=== PATIENT | male | born 1975 | race Hispanic/Latino ===

== ENCOUNTER 2024-09-17 17:24 | Emergency (ER) | payer BC, OTHER ==
--- OUTSIDE RECORDS SUMMARY | 2024-09-17 17:28 | XMS REPORT | Continuity of Care Document ---
Author Name Unknown Address [address] [facility] [address] [place] [address] [facility] thconnect Address [address] [facility] [place] [address] Care Team Providers Care Power Chisel Operator Name Role Phone Irvin Baig Primary Care Physician [phone] Irvin Baig Attending Clinician Unavailable EDIL BOOKER Attending Clinician Unavailable Ishmael Mccarthy Attending Clinician Unavailable Miguel Bustillo DO Attending Clinician [phone] Andrei Daniel MD Attending Clinician [phone] ANDREI DANIEL Attending Clinician Unavailable KNOW, DOES_NOT Admitting Clinician Unavailable Payers Payer Name Policy Type Policy Number Effective Date Expirati on Date Source [id number] PPO [id number] 2020 00:00:00 2024 00:00:00 [employer] 53 [id number] 2024 00:00:00 [facility] 6 [id number] 2017 00:00:00 [facility] Problems Condition Name Condition Details Condition Category Status Onset Date Resolution Date Last Treatment Date Treating Clinician Comments Source Tear of lateral meniscus of knee Tear of Lateral Meniscus of Knee Problem Active 01-05 00:00: 00 [facility] Chondromal acia of right patella Chondromal acia of Right Patella Problem Active 01-05 00:00: 00 [facility] Pain of left knee joint Pain of Left Knee Joint Problem Active 12-24 00:00: 00 [facility] No known active problems No known active problems Disease [facility] [id number] Morbid obesity Problem [facility] [id number] Other chronic pain Problem [facility] [id number] Adult BMI 40.0-44.9 kg/sq m Problem [facility] [id number] Prediabete s Problem [facility] [id number] Gout of right ankle, unspecifie d cause, unspecifie d chronicity Problem [facility] [id number] Marital conflict involving divorce Problem [facility] [id number] Adjustment disorder, unspecifie d type Problem [facility] [id number] Mixed hyperlipid emia Problem [facility] [id number] Acute gout involving toe, unspecifie d cause, unspecifie d laterality Problem [facility] [id number] Attention deficit hyperactiv ity disorder (ADHD), predominan tly inattentiv e type Problem [facility] [id number] Grieving Problem Commo n [facility] [id number] S/P laparoscop ic cholecyste ctomy Problem [facility] Allergies, Adverse Reactions, Alerts Allergy Name Allergy Type Status Severity Reaction(s) Onset Date Inactive Date Treating Clinician Comments Source No Known Drug Allergie s DA Active U 6-19 00:00: 00 [facility] NO KNOWN ALLERGIE S Drug Class Active [facility] Social History Social Habit Start Date Stop Date Quantity Comments Source Exposure to SARS-CoV-2 (event) Not sure [facility] of [facility] Sex Assigned At [facility] Smoking Status Start Date Stop Date Source Never Smoker [facility] Tobacco smoking consumption unknown [facility] Medications Ordered Medication Name Filled Medication Name Start Date Stop Date Current Medication? Ordering Clinician Indication Dosage Frequency Signature (SIG) Comments Components Source Amphetamine -Dextroamph etamine 20 MG Amphetamine -Dextroamph etamine 20 MG 2-12 00:00: 00 No 1{table t} BID Amphetamin e-Dextroam phetamine 20 MG HYDROcodone -acetaminop hen (NORCO) 10-325 mg tablet 1 tablet 12-16 02:45: 00 12-16 01:40 :00 No 1{tbl} 1 tablet, Oral, ONCE, 1 dose, On Fri12/16/23 at 2145, Routine [facility] ketorolac (TORADOL) injection 15 mg 12-16 02:30: 00 12-16 01:40 :00 No 15mg 15 mg, Slow IV Push, ONCE, 1 dose, On Fri12/16/23 at 2130, Routine [facility] HYDROcodone -acetaminop hen (NORCO) 10-325 mg tablet 1 tablet 12-15 23:30: 00 12-15 22:31 :00 No 1{tbl} 1 tablet, Oral, ONCE, 1 dose, On Fri12/16/23 at 1830, Routine [facility] colchicine (COLCRYS) tablet 1.2 mg 12-15 21:45: 00 12-15 21:39 :00 No 1.2mg 1.2 mg, Oral, ONCE, 1 dose, On Fri12/16/23 at 1645, Routine [facility] methylPREDN ISolone 4 mg tablets 5- 00:00: 00 Yes [id number] Take by mouth SEE-INSTRU CTIONS. follow package directions [facility] ibuprofen (IBU) tablet 600 mg 01-05 14:00: 00 01-05 14:03 :00 No 600mg 600 mg, Oral, ONCE, 1 dose, Fri01/05/21 at 0900, LISA [facility] KCL (KLOR-CON M20) tablet 40 mEq 01-05 13:00: 00 01-05 12:09 :00 No 40meq 40 mEq, Oral, ONCE, 1 dose, Fri01/05/21 at 0800, Routine [facility] Kenalog (Triamcinol one) Kenalog (Triamcinol one) 1-16 00:00: [address] [facility] No known medications No Un angelique [facility] naproxen sodium 550 mg tablet TAKE 1 TABLET BY MOUTH IN THE MORNING AND 1 IN THE EVENING WITH MEALS naproxen sodium 550 mg tablet TAKE 1 TABLET BY MOUTH IN THE MORNING AND 1 IN THE EVENING WITH MEALS No naproxen sodium 550 mg tablet TAKE 1 TABLET BY MOUTH IN THE MORNING AND 1 IN THE EVENING WITH MEALS [facility] Allopurinol 300 MG Allopurinol 300 MG No QD Allopurino l 300 MG predniSONE 10 MG predniSONE 10 MG No predniSONE 10 MG prednisone 10 mg tablet Take 1 tablet twice a day by oral route. prednisone 10 mg tablet Take 1 tablet twice a day by oral route. No 1 BID prednisone 10 mg tablet Take 1 tablet twice a day by oral route. [facility] Meloxicam 15 MG Meloxicam 15 MG No Meloxicam 15 MG aspirin 81 mg tablet,radha yed release TAKE 1 TABLET BY MOUTH TWICE DAILY FOR 21 DAYS aspirin 81 mg tablet,radha yed release TAKE 1 TABLET BY MOUTH TWICE DAILY FOR 21 DAYS No aspirin 81 mg tablet,del ayed release TAKE 1 TABLET BY MOUTH TWICE DAILY FOR 21 DAYS [facility] promethazin e 25 mg tablet TAKE 1 TABLET BY MOUTH EVERY 8 HOURS NEEDED FOR NAUSEA AND VOMITING promethazin e 25 mg tablet TAKE 1 TABLET BY MOUTH EVERY 8 HOURS NEEDED FOR NAUSEA AND VOMITING No promethazi ne 25 mg tablet TAKE 1 TABLET BY MOUTH EVERY 8 HOURS NEEDED FOR NAUSEA AND VOMITING [facility] tramadol 50 mg tablet TAKE 1 TABLET BY MOUTH EVERY 6 HOURS FOR 5 DAYS tramadol 50 mg tablet TAKE 1 TABLET BY MOUTH EVERY 6 HOURS FOR 5 DAYS No 1 Q6H tramadol 50 mg tablet TAKE 1 TABLET BY MOUTH EVERY 6 HOURS FOR 5 DAYS [facility] meloxicam 15 mg tablet TAKE 1 TABLET BY MOUTH ONCE DAILY WITH MEALS meloxicam 15 mg tablet TAKE 1 TABLET BY MOUTH ONCE DAILY WITH MEALS No meloxicam 15 mg tablet TAKE 1 TABLET BY MOUTH ONCE DAILY WITH MEALS [facility] Zanaflex 4 mg tablet Take 1 tablet every 6 hours by oral route. Zanaflex 4 mg tablet Take 1 tablet every 6 hours by oral route. No 1 Q6H Zanaflex 4 mg tablet Take 1 tablet every 6 hours by oral route. [facility] dextroamphe tamine-amph etamine 20 mg tablet TAKE 1 TABLET BY MOUTH TWICE DAILY FOR 30 DAYS dextroamphe tamine-amph etamine 20 mg tablet TAKE 1 TABLET BY MOUTH TWICE DAILY FOR 30 DAYS No dextroamph etamine-am phetamine 20 mg tablet TAKE 1 TABLET BY MOUTH TWICE DAILY FOR 30 DAYS [facility] dextroamphe tamine-amph etamine ER 15 mg 24hr capsule,ext end release TAKE 1 CAPSULE BY MOUTH ONCE DAILY IN THE MORNING FOR 30 DAYS dextroamphe tamine-amph etamine ER 15 mg 24hr capsule,ext end release TAKE 1 CAPSULE BY MOUTH ONCE DAILY IN THE MORNING FOR 30 DAYS No dextroamph etamine-am phetamine ER 15 mg 24hr capsule,ex tend release TAKE 1 CAPSULE BY MOUTH ONCE DAILY IN THE MORNING FOR 30 DAYS [facility] methocarbam ol 500 mg tablet TAKE 1 TABLET BY MOUTH IN THE MORNING AND 1 AT NOON AND 1 IN THE EVENING FOR 5 DAYS methocarbam ol 500 mg tablet TAKE 1 TABLET BY MOUTH IN THE MORNING AND 1 AT NOON AND 1 IN THE EVENING FOR 5 DAYS No methocarba mol 500 mg tablet TAKE 1 TABLET BY MOUTH IN THE MORNING AND 1 AT NOON AND 1 IN THE EVENING FOR 5 DAYS [facility] methylpredn isolone 4 mg tablets in a dose pack TAKE BY MOUTH DIRECTED ON INSIDE OF PACKAGE methylpredn isolone 4 mg tablets in a dose pack TAKE BY MOUTH DIRECTED ON INSIDE OF PACKAGE No methylpred nisolone 4 mg tablets in a dose pack TAKE BY MOUTH DIRECTED ON INSIDE OF PACKAGE [facility] Immunizations Ordered Immunization Name Filled Immunization Name Date Status Comments Source Kenalog (Triamcinolone) Kenalog (Triamcinolone) 2018-08-05 08:24:00 Completed [facility] Adacel (Tdap) Adacel (Tdap) 2018 10:33:00 Completed [facility] Adacel (Tdap) Adacel (Tdap) 2018 10:33:00 Completed [facility] Adacel (Tdap) Adacel (Tdap) 2018 10:33:00 Completed [facility] Adacel (Tdap) Adacel (Tdap) 2018 10:33:00 Completed [facility] Adacel (Tdap) Adacel (Tdap) 2018 10:33:00 Completed [facility] Adacel (Tdap) Adacel (Tdap) 2018 10:33:00 Completed [facility] Adacel (Tdap) Adacel (Tdap) 2018 10:33:00 Completed [facility] Adacel (Tdap) Adacel (Tdap) Unknown Completed [facility] Adacel (Tdap) Adacel (Tdap) Unknown Completed [facility] Adacel (Tdap) Adacel (Tdap) Unknown Completed [facility] Adacel (Tdap) Adacel (Tdap) Unknown Completed [facility] Adacel (Tdap) Adacel (Tdap) Unknown Completed [facility] Adacel (Tdap) Adacel (Tdap) Unknown Completed [facility] Adacel (Tdap) Adacel (Tdap) Unknown Completed [facility] Adacel (Tdap) Adacel (Tdap) Unknown Completed [facility] Adacel (Tdap) Adacel (Tdap) Unknown Completed [facility] Adacel (Tdap) Adacel (Tdap) Unknown Completed [facility] Adacel (Tdap) Adacel (Tdap) Unknown Completed [facility] Vital Signs Vital Name Observation Time Observation Value Comments S ource height 2024-08-02 08:00:00 72 [in_i] [facility]mo n [facility] weight 2024-08-02 08:00:00 317 [lb_av] Comm on [facility] bmi 2024-08-02 08:00:00 42.99 kg/m2 Comm on [facility] blood pressure systolic 2024-08-02 08:00:00 128 mm[Hg] Common [facility] blood pressure diastolic 2024-08-02 08:00:00 70 mm[Hg] Common [facility] height 2024-06-04 08:15:00 72 [in_i] Commo n [facility] weight 2024-06-04 08:15:00 319 [lb_av] Comm on [facility] bmi 2024-06-04 08:15:00 43.26 kg/m2 Comm [facility] blood pressure systolic 2024-06-04 08:15:00 124 mm[Hg] [facility] blood pressure diastolic 2024-06-04 08:15:00 76 mm[Hg] Common [facility] height 2024-04-05 07:50:00 72 [in_i] Commo n [facility] weight 2024-04-05 07:50:00 323 [lb_av] Comm on [facility] bmi 2024-04-05 07:50:00 43.8 kg/m2 Commo n [facility] blood pressure systolic 2024-04-05 07:50:00 128 mm[Hg] [facility] blood pressure diastolic 2024-04-05 07:50:00 79 mm[Hg] [facility] height 2024-02-03 07:50:00 72 [in_i] Commo n [facility] weight 2024-02-03 07:50:00 312 [lb_av] Comm on [facility] bmi 2024-02-03 07:50:00 42.31 kg/m2 Comm on [facility] blood pressure systolic 2024-02-03 07:50:00 130 mm[Hg] Common [facility] blood pressure diastolic 2024-02-03 07:50:00 72 mm[Hg] [facility] Height 2024-01-16 00:00:00 73 [in_i] [facility] BMI (Body Mass Index) 2024-01-06 00:00:00 42.1 kg/m2 [facility] Height 2024-01-06 00:00:00 73 [in_i] [facility] Body Weight 2024-01-06 00:00:00 319 [lb_av] [facility] height 2024-01-05 09:00:00 72 [in_i] [facility]mo n [facility] weight 2024-01-05 09:00:00 313.4 [lb_av] [facility] temperature 2024-01-05 09:00:00 98.2 [degF] Com mon [facility] bmi 2024-01-05 09:00:00 42.5 kg/m2 [facility]mo n [facility] oximetry 2024-01-05 09:00:00 98 % [facility]mo n [facility] blood pressure systolic 2024-01-05 09:00:00 132 mm[Hg] [facility] blood pressure diastolic 2024-01-05 09:00:00 79 mm[Hg] [facility] Height 2023-12-25 00:00:00 73 [in_i] [facility] BMI (Body Mass Index) 2023-12-25 00:00:00 42.1 kg/m2 [facility] Body Weight 2023-12-25 00:00:00 319 [lb_av] [facility] Systolic blood pressure 2023-12-17 02:00:00 145 mm[Hg] [facility] Diastolic blood pressure 2023-12-17 02:00:00 94 mm[Hg] [facility] Heart rate 2023-12-17 02:00:00 92 /min [facility] Body temperature 2023-12-17 02:00:00 37.11 Madelaine [facility] Respiratory rate 2023-12-17 02:00:00 18 /min [facility] Oxygen saturation in Arterial blood by Pulse oximetry 2023-12-17 02:00:00 92 /min [facility] Body height 2023-12-16 20:14:00 185.4 cm [facility] Body weight 2023-12-16 20:14:00 144.697 kg [facility] BMI 2023-12-16 20:14:00 42.09 kg/m2 [facility] height 2023-12-05 09:40:00 72 [in_i] [facility]mo n [facility] weight 2023-12-05 09:40:00 319 [lb_av] Comm on [facility] temperature 2023-12-05 09:40:00 98.0 [degF] Com mon [facility] bmi 2023-12-05 09:40:00 43.26 kg/m2 Comm [facility] blood pressure systolic 2023-12-05 09:40:00 130 mm[Hg] [facility] blood pressure diastolic 2023-12-05 09:40:00 78 mm[Hg] [facility] height 2023-09-02 08:00:00 72 [in_i] Commo n [facility] weight 2023-09-02 08:00:00 311 [lb_av] Comm on [facility] temperature 2023-09-02 08:00:00 98 [degF] Comm on [facility] bmi 2023-09-02 08:00:00 42.17 kg/m2 Comm [facility] blood pressure systolic 2023-09-02 08:00:00 125 mm[Hg] [facility] blood pressure diastolic 2023-09-02 08:00:00 70 mm[Hg] [facility] height 2022-12-20 08:00:00 72 [in_i] [facility]mo n [facility] weight 2022-12-20 08:00:00 317 [lb_av] Comm on [facility] bmi 2022-12-20 08:00:00 42.99 kg/m2 Comm on [facility] blood pressure systolic 2022-12-20 08:00:00 122 mm[Hg] [facility] blood pressure diastolic 2022-12-20 08:00:00 72 mm[Hg] Common [facility] height 2022-11-19 10:50:00 72 [in_i] [facility]mo n [facility] weight 2022-11-19 10:50:00 327.9 [lb_av] [facility] temperature 2022-11-19 10:50:00 97.8 [degF] Com mon [facility] bmi 2022-11-19 10:50:00 44.47 kg/m2 Comm [facility] oximetry 2022-11-19 10:50:00 96 % [facility] n [facility] respiratory rate 2022-11-19 10:50:00 16 /min [facility] blood pressure systolic 2022-11-19 10:50:00 127 mm[Hg] [facility] blood pressure diastolic 2022-11-19 10:50:00 84 mm[Hg] [facility] height 2022-05-22 08:00:00 72 [in_i] Commo n [facility] weight 2022-05-22 08:00:00 292 [lb_av] Comm on [facility] temperature 2022-05-22 08:00:00 98 [degF] Comm on [facility] bmi 2022-05-22 08:00:00 39.6 kg/m2 [facility]mo [facility] blood pressure systolic 2022-05-22 08:00:00 132 mm[Hg] [facility] blood pressure diastolic 2022-05-22 08:00:00 76 mm[Hg] [facility] height 2022-01-22 11:40:00 72 [in_i] Commo n [facility] weight 2022-01-22 11:40:00 303.0 [lb_av] [facility] temperature 2022-01-22 11:40:00 98.0 [degF] Com mon [facility] bmi 2022-01-22 11:40:00 41.09 kg/m2 Comm on [facility] oximetry 2022-01-22 11:40:00 98 % Commo n [facility] respiratory rate 2022-01-22 11:40:00 18 /min [facility] blood pressure systolic 2022-01-22 11:40:00 136 mm[Hg] [facility] blood pressure diastolic 2022-01-22 11:40:00 77 mm[Hg] [facility] height 2021-11-30 11:10:00 72 [in_i] Commo n [facility] weight 2021-11-30 11:10:00 293.3 [lb_av] [facility] temperature 2021-11-30 11:10:00 98.3 [degF] Com mon [facility] bmi 2021-11-30 11:10:00 39.77 kg/m2 Comm on [facility] oximetry 2021-11-30 11:10:00 96 % Commo n [facility] respiratory rate 2021-11-30 11:10:00 17 /min [facility] blood pressure systolic 2021-11-30 11:10:00 132 mm[Hg] Common [facility] blood pressure diastolic 2021-11-30 11:10:00 76 mm[Hg] [facility] height 2021-07-04 14:20:00 72 [in_i] Commo n [facility] weight 2021-07-04 14:20:00 275 [lb_av] Comm on [facility] temperature 2021-07-04 14:20:00 97.5 [degF] Com mon [facility] bmi 2021-07-04 14:20:00 37.29 kg/m2 Comm on [facility] blood pressure systolic 2021-07-04 14:20:00 119 mm[Hg] [facility] blood pressure diastolic 2021-07-04 14:20:00 80 mm[Hg] Common [facility] height 2021-04-10 08:40:00 72 [in_i] Commo n [facility] weight 2021-04-10 08:40:00 278 [lb_av] Comm on [facility] temperature 2021-04-10 08:40:00 98 [degF] Comm on [facility] bmi 2021-04-10 08:40:00 37.7 kg/m2 Commo n [facility] Systolic blood pressure 2021-01-05 14:00:00 136 mm[Hg] [facility] Diastolic blood pressure 2021-01-05 14:00:00 84 mm[Hg] [place] [facility] Heart rate 2021-01-05 14:00:00 76 /min [facility] Respiratory rate 2021-01-05 14:00:00 19 /min [facility] Oxygen saturation in Arterial blood by Pulse oximetry 2021-01-05 14:00:00 97 /min [place] [facility] Body temperature 2021-01-05 10:43:00 37.11 Madelaine [facility] Body height 2021-01-05 10:43:00 185.4 cm [facility] Body weight 2021-01-05 10:43:00 143.79 kg [facility] BMI 2021-01-05 10:43:00 41.82 kg/m2 [facility] Procedures Procedure Date / Time Performed Performing Clinician Source Arthroscopy of Knee 2024-01-08 00:00:00 Dinorah seay [facility] Medicine MRI, knee, w/o contrast 2023-12-25 00:00:00 [facility] LACTIC ACID WHOLE BLOOD 2023-12-17 01:31:00 Paola Bustillo [facility] XR KNEE <3 VW LEFT 2023-12-17 00:44:41 [facility] BODY FLUID DIRECT COUNT 2023-12-16 22:43:00 Paola Bustillo [facility] LACTIC ACID WHOLE BLOOD 2023-12-16 20:33:00 Paola Bustillo [facility] URIC ACID 2023-12-16 20:32:00 [facility] COMP. METABOLIC PANEL ([id number]) 2023-12-16 20:32:00 Singer [facility] CBC WITH DIFF 2023-12-16 20:32:00 Singer [facility] TROPONIN I 2021-01-05 12:08:00 Andrei Daniel [facility] XR CHEST 1 VW 2021-01-05 10:58:25 Andrei [facility] 2021-01-05 10:48:00 Andrei Daniel [facility] TROPONIN I 2021-01-05 10:48:00 Andrei Daniel [facility] COMP. METABOLIC PANEL ([id number]) 2021-01-05 10:48:00 Andrei Daniel [facility] CBC WITH DIFF 2021-01-05 10:48:00 Andrei Daniel [facility] N-TERMINAL PRO-BNP 2021-01-05 10:48:00 Andrei Daniel [facility] Appendectomy [facility] Encounters Start Date/Time End Date/Time Encounter Type Admission Type Attending Clinicians Care Facility Care Department Encounter ID Source 2024-07-29 10:56:00 Outpatient Baig, Irvin [facility] ST[facility] [id number] [facility] 2024-06-11 16:07:00 Outpatient Baig, Irvin [facility] [id number] [facility] 2024-04-05 08:05:00 Outpatient Baig, Irvin [facility] [id number] [facility] 2024-04-01 09:00:00 Outpatient Baig, Irvin [facility] [id number] [facility] 2024-02-26 15:16:00 Outpatient Baig, Irvin [facility] [id number] [facility] 2024-01-02 11:27:00 Outpatient Baig, Irvin [facility] [id number] [facility] 2024-01-01 13:45:00 Outpatient Baig, Irvin [facility] [id number] [facility] 2023-12-03 15:41:00 Outpatient Baig, Irvin [facility] [id number] [facility] 2022-12-19 11:31:00 Outpatient Baig, Irvin [facility] [id number] [facility] 2022-11-15 09:22:00 Outpatient Baig, Irvin [facility] [id number] [facility] 2022-05-20 10:30:00 Outpatient Baig, Irvin [facility] [id number] [facility] 2022-05-06 08:12:00 Outpatient Baig, Irvin [facility] [id number] [facility] 2022-02-14 11:00:01 Outpatient Baig, Irvin [facility] [id number] [facility] 2021-11-30 10:11:00 Outpatient Baig, Irvin [facility] ST[facility] [id number] [facility] 2021-09-03 01:03:54 Outpatient EDIL BOOKER [facility] [id number] [facility] 2021-08-15 13:50:55 Outpatient Baig, Irvin [facility] ST[facility] [id number] [facility] 2021-08-15 13:19:04 [facility] [id number] [facility] 2021-08-15 13:18:13 Outpatient Baig, Irvin [facility] ST[facility] [id number] [facility] 2021-08-15 12:52:25 Outpatient Baig, Irvin [facility] STL[facility] [id number] [facility] 2021-08-15 12:45:24 Outpatient Baig, Irvin [facility] ST[facility] [id number] [facility] 2021-08-15 12:41:13 Outpatient Baig, Irvin [facility] STL[facility] [id number] [facility] 2024-08-30 00:00:00 2024-08-30 00:00:00 (TEL) STLMLC STLMLC [id number] [facility] 2024-08-02 00:00:00 2024-08-02 00:00:00 OFFICE VISIT ESTAB PT LEVEL 4 STLMLC STLMLC [id number] [facility] 2024-08-02 00:00:00 2024-08-02 00:00:00 (TEL) STLMLC STLMLC [id number] [facility] 2024-07-12 00:00:00 2024-07-12 00:00:00 (TEL) STLMLC STLMLC [id number] [facility] 2024-06-10 00:00:00 2024-06-10 00:00:00 (TEL) STLMLC STLMLC [id number] [facility] 2024-06-04 00:00:00 2024-06-04 00:00:00 OFFICE VISIT ESTAB PT LEVEL 4 STLMLC STLMLC [id number] [facility] 2024-05-10 00:00:00 2024-05-10 00:00:00 (TEL) STLMLC [facility] [id number] [facility] [facility] 2024-04-05 00:00:00 2024-04-05 00:00:00 OFFICE VISIT ESTAB PT LEVEL 4 STLMLC STLMLC [id number] [facility] 2024-03-11 00:00:00 2024-03-11 00:00:00 (TEL) STLMLC STLMLC [id number] [facility] 2024-02-25 00:00:00 2024-02-25 00:00:00 (TEL) STLMLC STLMLC [id number] [facility] 2024-02-13 00:00:00 2024-02-13 00:00:00 Ishmael Mccarthy MD: [id number] [place] [address] , Ph. 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 [phone] [facility] [place] [facility] [place] [facility] [id number] [facility] 2024-01-08 07:47:00 2024-01-08 07:47:00 Outpatient Ishmael Benitez [facility] DAYS [id number] 40 [facility] [place] [facility] 2024-01-06 00:00:00 2024-01-06 00:00:00 Ishmael Mccarthy MD: [address] [place] [address] , Ph. [phone] [facility] [place] [facility] [place] [facility] [id number] [facility] 2024-01-05 00:00:00 2024-01-05 00:00:00 (WELLNESS) Wellness Visit [facility] [id number] [facility] 2023-12-25 00:00:00 2023-12-25 00:00:00 Ishmael Mccarthy MD: [address] [place] [address] , Ph. [phone] [facility] [place] [facility] [place] [facility] [id number] [facility] 2023-12-16 15:09:00 2023-12-16 21:38:00 Emergency Miguel Bustillo [facility] [id number] [facility] 2023-12-08 00:00:00 2023-12-08 00:00:00 (TEL) STLMLC STLMLC [id number] [facility] 2023-12-05 00:00:00 2023-12-05 00:00:00 OFFICE VISIT ESTAB PT LEVEL 4 STLMLC STLMLC [id number] [facility] 2023-12-05 00:00:00 2023-12-05 00:00:00 (TEL) STLMLC STLMLC [id number] [facility] 2023-11-19 00:00:00 2023-11-19 00:00:00 (TEL) STLMLC STLMLC [id number] [facility] 2023-11-17 00:00:00 2023-11-17 00:00:00 (TEL) STLMLC STLMLC [id number] [facility] 2023-09-02 00:00:00 2023-09-02 00:00:00 OFFICE VISIT ESTAB PT LEVEL 3 STLMLC STLMLC [id number] [facility] 2022-12-20 00:00:00 2022-12-20 00:00:00 OFFICE VISIT ESTAB PT LEVEL 3 STLMLC STLMLC [id number] [facility] 2022-12-20 00:00:00 2022-12-20 00:00:00 (TEL) STLMLC STLMLC [id number] [facility] 2022-11-22 00:00:00 2022-11-22 00:00:00 (TEL) STLMLC STLMLC [id number] [facility] 2022-11-19 00:00:00 2022-11-19 00:00:00 (WELLNESS) Wellness Visit STLMLC STLMLC [id number] [facility] 2022-11-06 00:00:00 2022-11-06 00:00:00 (TEL) STLMLC STLMLC [id number] [facility] 2022-05-22 00:00:00 2022-05-22 00:00:00 OFFICE VISIT EST PT LEVEL 3 STLMLC STLMLC [id number] [facility] 2022-05-22 00:00:00 2022-05-22 00:00:00 (TEL) STLMLC STLMLC [id number] [facility] 2022-05-21 00:00:00 2022-05-21 00:00:00 (TEL) STLMLC STLMLC [id number] [facility] 2022-05-15 00:00:00 2022-05-15 00:00:00 (TEL) STLMLC STLMLC [id number] [facility] 2022-02-26 00:00:00 2022-02-26 00:00:00 (TEL) STLMLC STLMLC [id number] [facility] 2022-02-25 00:00:00 2022-02-25 00:00:00 (TEL) STLMLC STLMLC [id number] [facility] 2022-01-22 00:00:00 2022-01-22 00:00:00 OFFICE VISIT ESTAB PT LEVEL 4 STLMLC STLMLC [id number] [facility] 2021-11-30 00:00:00 2021-11-30 00:00:00 PREV VISIT NEW AGE 40-64 STLMLC STLMLC [id number] [facility] 2021-11-02 00:00:00 2021-11-02 00:00:00 (TEL) STLMLC STLMLC [id number] [facility] 2021-10-24 00:00:00 2021-10-24 00:00:00 (TEL) STLMLC STLMLC [id number] [facility] 2021-10-15 00:00:00 2021-10-15 00:00:00 (TEL) STLMLC STLMLC [id number] [facility] 2021-07-04 00:00:00 2021-07-04 00:00:00 OFFICE VISIT ESTAB PT LEVEL 4 STLMLC STLMLC [id number] [facility] 2021-06-25 00:00:00 2021-06-25 00:00:00 (TEL) STLMLC STLMLC [id number] [facility] 2021-04-10 00:00:00 2021-04-10 00:00:00 OFFICE VISIT EST PT LEVEL 3 STLMLC STLMLC [id number] [facility] 2021-01-29 00:00:00 2021-01-29 00:00:00 Outpatient STLMLC STLMLC [id number] [facility] 2021-01-11 00:00:00 2021-01-11 00:00:00 Outpatient STLMLC STLMLC [id number] [facility] 2021-01-08 00:00:00 2021-01-08 00:00:00 Outpatient STLMLC STLMLC [id number] [facility] 2021-01-05 05:38:00 2021-01-05 09:14:00 Emergency Andrei Daniel [facility] [id number] [facility] 2021-01-05 05:38:00 2021-01-05 05:38:00 Emergency X ANDREI DANIEL [facility] ERT [id number] [facility] 2020-11-06 00:00:00 2020-11-06 00:00:00 Outpatient STLMLC STLMLC [id number] [facility] 2020-10-16 00:00:00 2020-10-16 00:00:00 Outpatient STLMLC STLMLC [id number] [facility] 2019-01-08 09:45:00 2019-01-08 09:45:00 Outpatient [facility] [employer] [facility] [id number] [facility] 2018-08-07 11:55:00 2018-08-07 11:55:00 Outpatient [facility] [employer] [facility] [id number] [facility] 2018-08-05 08:00:00 2018-08-05 08:00:00 Outpatient [facility] Medicine [facility] [id number] [facility] Results Test Description Test Time Test Comments Results Result Co mments Source XR KNEE <3 VW [id number] 01:42:26EXAM: XR KNEE <3 VW LEFT HISTORY: pain / effusion post arthrocentesis. COMPARISON: None. FINDINGS: Radiographs of the left knee demonstrate no acute fracture or dislocation.Tricompartmental marginal osteophytosis is noted with medial compartmentjoint space narrowing. Alignment is within normal limits. A large kneejoint effusion is present.[facility] [id number] 01:38:51* Test Item Value Reference Range Interpretation Comme nts LACTIC ACID (test code = 4534905477) 0.93 mmol/L 0.50-2.20 Lab Interpretation (test cod e = 16206-8) Normal [facility] Whole [id number] 20:55:33* Test Item Value Reference Range Interpretation Comme nts LACTIC ACID (test code = 1192919333) 2.69 mmol/L 0.50-2.20 H Lab Interpretation (test cod e = 21327-6) Abnormal [facility] [id number] 13:37:34* Test Item Value Reference Range Interpretation Comme nts TROPONIN I (test code = 9312516650) 0.004 ng/mL See_Comment [Automated message] The system which generated this result transmitted reference range: <=0.034. The reference range was not used to interpret this result as normal/abnormal. JULIET (test code = JULIET) Equal or Less than 0.034 ng/ml---Normal ?Note: Cardiac troponin begins to rise 3-4 hours after the onset of ischemia. Repeat in 4-6 hours if the sample was drawn within 3-4 hours of the onset of the symptom and found normal. Between 0.035 and 0.120 ng/mL--- Borderline. Questionable myocardial injury or necrosis ? ?Note: Serial measurement may be necessary to confirm or exclude the diagnosis of myocardial injury or necrosis; Clinical correlation (symptoms, EKGs, imaging studies, and others) required; Repeat in 4-6 hours if clinically indicated. ? Equal or Higher than 0.121 ng/mL---Abnormal. Myocardial Injury or Necrosis Likely ? Biotin has been reported to cause a negative bias, interpret results relative to patient's use of biotin. ? Lab Interpretation (test code = 58856-5) Normal [facility] CHE[facility] 1 [id number] 13:00:51No acute cardiopulmonary abnormality. Preliminary Report Dictated by Resident: Krys Mckee I, Suraj Leroy MD., have reviewed this study and agree with theabove report.XR CHEST 1 VWHistory: chest pressure Comparison: None available Technique: Frontal radiograph Findings: The lungs are hypoinflated but otherwise clear. No pleural effusion, focalconsolidation, or pneumothorax is identified. The cardiomediastinal silhouette is upper normal in size. No acute osseous abnormality is present. [facility], Radiant Results Inft User - 01/05/2021 8:01 AM CDT XR CHEST 1 VWHistory: chest pressure Comparison: None availableTechnique: Frontal radiographFindings:The lungs are hypoinflated but otherwise clear. No pleural effusion, focalconsolidation, or pneumothorax is identified. The cardiomediastinal silhouette is upper normal insize. No acute osseous abnormality is present.IMPRESSIONNo acute cardiopulmonary abnormality.Prelimi nary Report Dictated by Resident: Krys Molina, Suraj Becker MD., have reviewed this study and agree with theabove report.[facility] Hospital[facility]. METABOLIC PANEL (64740)2021-01-05 11:50:02* Test Item Value Reference Range Interpretation Comme nts NA (test code = 8051554380) 140 mmol/L 135-145 K (test code = 5534385509) 3.2 mmol/L 3.5-5.0 L CL (test code = 4260815451) 107 mmol/L 98-108 CO2 TOTAL (test code = 6842617375) 22 mmol/L 23-31 L AGAP (test code = 4739757048) 2-16 BUN (test code = 7169285135) 12 mg/dL 7-23 GLUCOSE (test code = 6615085561) 132 mg/dL 70-110 H CREATININE (test code = 2355702735) 0.90 mg/dL 0.60-1.25 TOTAL BILI (test code = 1132335248) 0.9 mg/dL 0.1-1.1 CALCIUM (test code = 9493420921) 8.8 mg/dL 8.6-10.6 T PROTEIN (test code = 8396141688) 7.7 g/dL 6.3-8.2 ALBUMIN (test code = 0215629553) 4.5 g/dL 3.5-5.0 ALK PHOS (test code = 9137673037) 66 U/L 34-122 ALTv (test code = 1742-6) 48 U/L 5-50 AST(SGOT) (test code = 9851059240) 86 U/L 13-40 H eGFR (test code = 9118143215) mL/min/1.73m2 JULIET (test code = JULIET) Association of Glomerular Filtration Rate (GFR) and Staging of Kidney Disease* + --+ --+ ------+| GFR (mL/min/1.73 m2) ?| With Kidney Damage ?| ?Without Kidney Damage+ --------+ --------+ +| ?>90 ?| ?Stage one ?| ? Normal ?+ ---+ ---+ -------+| ?60-89 ?| ?Stage two ?| ? Decreased GFR ? + --+ --+ ------+| ?30-59 ?| ?Stage three ?| ? Stage three ? + --+ --+ ------+| ?15-29 ?| ?Stage four ? | ? Stage four ?+ ---+ ---+ -------+| ?<15 (or dialysis) ? ?| ?Stage five ? | ? Stage five ?+ ---+ ---+ -------+ *Each stage assumes the associated GFR level has been in effect for at least three months. ?Stages 1 to 5, with or without kidney disease, indicate chronic kidney disease. Notes: Determination of stages one and two (with eGFR >59mL/min/1.73 m2) requires estimation of kidney damage for at least three months as defined by structural or functional abnormalities of the kidney, manifested by either:Pathological abnormalities or Markers of kidney damage (including abnormalities in the composition of the blood or urine or abnormalities in imaging tests). Lab Interpretation (test code = 64520-0) Abnormal [facility] [id number] 11:35:25* Test Item Value Reference Range Interpretation Comme nts TROPONIN I (test code = 8675690414) 0.004 ng/mL See_Comment [Automated message] The system which generated this result transmitted reference range: <=0.034. The reference range was not used to interpret this result as normal/abnormal. JULIET (test code = JULIET) Equal or Less than 0.034 ng/ml---Normal ?Note: Cardiac troponin begins to rise 3-4 hours after the onset of ischemia. Repeat in 4-6 hours if the sample was drawn within 3-4 hours of the onset of the symptom and found normal. Between 0.035 and 0.120 ng/mL--- Borderline. Questionable myocardial injury or necrosis ? ?Note: Serial measurement may be necessary to confirm or exclude the diagnosis of myocardial injury or necrosis; Clinical correlation (symptoms, EKGs, imaging studies, and others) required; Repeat in 4-6 hours if clinically indicated. ? Equal or Higher than 0.121 ng/mL---Abnormal. Myocardial Injury or Necrosis Likely ? Biotin has been reported to cause a negative bias, interpret results relative to patient's use of biotin. ? Lab Interpretation (test code = 45672-6) Normal [facility] HospitalN-TERMINAL [id number] 11:32:22* Test Item Value Reference Range Interpretation Comme nts NT-proBNP (test code = 7656443019) 39 pg/mL See_Comment [Automated message] The system which generated this result transmitted reference range: <=125. The reference range was not used to interpret this result as normal/abnormal. JULIET (test code = JULIET) Biotin has been reported to cause a negative bias, interpret results relative to patient's use of biotin. Lab Interpretation (test code = 54455-8) Normal [facility] HospitalLIPASE, [id number] 11:23:22* Test Item Value Reference Range Interpretation Comme nts LIPASE (test code = 0299311204) 86 U/L 0-220 Lab Interpretation (test cod e = 22827-9) Normal [facility] HospitalCBC WITH [id number] 10:59:21* Test Item Value Reference Range Interpretation Comme nts WBC (test code = 6690-2) See_Comment [Automated Serverona ge] The system which generated this result transmitted reference range: 4.20 - 10.70 10*3/?L. The reference range was not used to interpret this result as normal/abnormal. RBC (test code = 789-8) See_Comment [Automated Serverona ge] The system which generated this result transmitted reference range: 4.26 - 5.52 10*6/?L. The reference range was not used to interpret this result as normal/abnormal. HGB (test code = 718-7) 15.4 g/dL 12.2-16.4 HCT (test code = 4544-3) 45.0 % 38.4-49.3 MCV (test code = 787-2) 88.2 fL 81.7-95.6 MCH (test code = 785-6) 30.2 pg 26.1-32.7 MCHC (test code = 786-4) 34.2 g/dL 31.2-35.0 RDW-SD (test code = 12539-4) 38.3 fL 38.5-51.6 L RDW-CV (test code = 788-0) 11.9 % 12.1-15.4 L PLT (test code = 777-3) See_Comment [Automated Serverona ge] The system which generated this result transmitted reference range: 150 - 328 10*3/?L. The reference range was not used to interpret this result as normal/abnormal. MPV (test code = 35471-8) 11.1 fL 9.8-13.0 NRBC/100 WBC (test code = 4396361254) See_Comment [Automated me ssage] The system which generated this result transmitted reference range: 0.0 - 10.0 /100 WBCs. The reference range was not used to interpret this result as normal/abnormal. NRBC x10^3 (test code = 0176295234) <0.01 See_Comment [Automated messa ge] The system which generated this result transmitted reference range: 10*3/?L. The reference range was not used to interpret this result as normal/abnormal. GRAN MAT (NEUT) % (test code = 770-8) 53.0 % IMM GRAN % (test code = 7687093396) 0.50 % LYMPH % (test code = 736-9) 36.5 % MONO % (test code = 5905-5) 6.8 % EOS % (test code = 713-8) 2.7 % BASO % (test code = 706-2) 0.5 % GRAN MAT x10^3(ANC) (test code = 5827024855) 4.48 10*3/uL 1.99-6.95 IMM GRAN x10^3 (test code = 6831300512) 0.04 10*3/uL 0.00-0.06 LYMPH x10^3 (test code = 731-0) 3.08 10*3/uL 1.09-3.23 MONO x10^3 (test code = 742-7) 0.57 10*3/uL 0.36-1.02 EOS x10^3 (test code = 711-2) 0.23 10*3/uL 0.06-0.53 BASO x10^3 (test code = 704-7) 0.04 10*3/uL 0.01-0.09 Lab Interpretation (test code = 81793-9) Abnormal [facility] Notes Date/Time Note Provider Source 2024-01-08 10:55:00 [id number] [address] PATIENT NAME: SAMSON MCCLAIN ADMIT DATE: 01/08/24 ACCOUNT NO: [id number] ROOM NO: AGE: 48 REPORT TYPE: OPERATIVE REPORT SEX: M ADMITTING PHYSICIAN: ATTENDING PHYSICIAN:Ishmael Mccarthy MD OPERATION DATE: 01/08/2024 PREOPERATIVE DIAGNOSIS: Left knee lateral meniscal tear with osteoarthropathy involving the right knee. POSTOPERATIVE DIAGNOSES: 1. Complex tear involving the posterior horn and body, lateral meniscus, left knee, 2. Radial tear of body of medial meniscus, left knee. 3. Gouty synovitis, left knee. 4. Osteoarthritis, right knee. OPERATIVE PROCEDURES PERFORMED: 1. Left knee diagnostic arthroscopy with an arthroscopic partial medial and lateral meniscectomy, [address]9810. 2. Arthroscopic major synovectomy involving two or more compartments, 04037. 3. Ultrasound-guided intraarticular injection, right knee, . ANESTHESIA: General. TOURNIQUET TIME: 16 minutes. ESTIMATED BLOOD LOSS: None. SURGEON: Ishmael Mccarthy M.D. YARN TWISTER: HERMINIA Harrington. OPERATIVE FINDINGS: As above. SURGICAL SPECIMENS SENT: None. CLINICAL INDICATIONS: Mr. Mcclain is a 48-year-old male from [place], [place], who has been having progressive pain, catching, swelling, and locking involving his left knee for the past several months. Clinical as well as radiographic evaluation revealed a symptomatic tear of the lateral meniscus. He is admitted for arthroscopic meniscectomy. OPERATIVE NARRATIVE: 1. LEFT KNEE DIAGNOSTIC ARTHROSCOPY WITH AN ARTHROSCOPIC PARTIAL MEDIAL AND LATERAL MENISCECTOMY, 16316. 2. ARTHROSCOPIC MAJOR SYNOVECTOMY INVOLVING TWO OR MORE COMPARTMENTS, 30228. PATIENT NAME: SAMSON MCCLAIN 3. ULTRASOUND-GUIDED INTRAARTICULAR INJECTION, RIGHT KNEE, . DESCRIPTION OF PROCEDURE: Mr. Mcclain was brought to the operative suite, at which time he was placed in supine position on the OR table. Routine monitors were established. General anesthesia was delivered. After satisfactory induction of general anesthesia, a tourniquet was applied to the patient's left lower extremity per Mr. Harrington and the leg was placed in arthroscopic leg blair per Mr. Harrington. The leg was then elevated, exsanguinated, tourniquet was insufflated to 300 mmHg. The knee was then circumferentially prepped and draped in usual sterile fashion per Mr. Harrington. Anterior arthroscopic portals were established. Systematic arthroscopic evaluation performed. Patellofemoral evaluation revealed gouty crystallization with significant synovitis involving the suprapatellar pouch. Synovectomy was performed with chondroplasty. Femoral trochlea revealed a contained grade IV lesion involving the femoral trochlea measuring 1 x 1.2 cm. Debridement was performed to any and all unstable articular cartilage. The medial gutter was unremarkable. The medial compartment revealed a radial tear involving the body of the medial meniscus, which was resected to a stable configuration. No chondral pathology was noted. Femoral notch revealed significant synovitis with gouty crystallization. Synovectomy was performed. Intact anterior as well as posterior cruciate ligaments were noted. The lateral compartment revealed complex tearing involving the posterior horn and body of lateral meniscus with gouty deposition. This was resected. No chondral lesions were noted. Popliteal recess revealed synovitis due to gouty crystallization. Again, a synovectomy was performed. The posterior horn and body tear of the lateral meniscus were excised to a stable configuration utilizing hand and motorized instrumentation. At this time, the knee was thoroughly lavaged with lactated Ringer solution. Arthroscopic portals were closed respectively with a 4-0 nylon suture per Mr. Harrington. Intraarticular anesthetic injection performed by Mr. Harrington. Sterile dressing was applied by Mr. Harrington. The right knee was then aseptically prepped and utilizing biplanar ultrasound guidance with capture of the images, the knee was injected with 80 mg of Depo-Medrol. I personally reviewed the ultrasound images and possession of the hard copies. Dictated By: Ishmael Mccarthy MD Date Dictated: 01/08/2024 10:55:09 Date Transcribed: 01/08/2024 11:15:27 B/ROSALINDA Receipt ID: [id number] Authenticated by Ishmael Mccarthy MD On 01/09/2024 05:51:59 AM at 0551 PATIENT NAME: SAMSON MCCLAIN [facility] 2024-01-08 10:52:00 [facility] Brief Op Note REPORT#:[id number] REPORT STATUS: Signed REPORT INITIALIZATION DATE:01/08/24 TIME: 1051 PATIENT: SAMSON MCCLAIN UNIT #: [id number] ROOM/BED: : 77 AGE: 48 SEX: M ATTEND: Ishmael Mccarthy MD ADM AUTHOR: Estuardo Chauhan APRN REPT SERVICE DT/TIME: 01/08/24 1052 * ALL edits or amendments must be made on the electronic/computer document * Op/Inv Proc Note - Brief Pre-procedure diagnosis: Left knee meniscal tear and Chondromalacia of right knee Post-procedure diagnosis: same as pre procedure dx Procedures performed: Left knee arthroscopy with medial and lateral meniscectomy and majoe synovectomy with Right knee steriod injection Primary Surgeon: Dr Ishmael Mccarthy Rod Straightener(s): Estuardo Chauhan DNP Findings: See full dictation Complications: none Estimated blood loss in ml's: none Specimens removed/altered: none at 1053 at 0549 [facility] #:[id number] END OF REPORT [facility] 2024-01-07 07:31:00 [phone] [place] [address] PATIENT NAME: SAMSON MCCLAIN ADMIT DATE: ACCOUNT NO: [id number] ROOM NO: AGE: 48 REPORT TYPE: HISTORY AND PHYSICAL SEX: M ADMITTING PHYSICIAN: ATTENDING PHYSICIAN:Ishmael Mccarthy MD ADMISSION DATE: 01/08/2024 13:00:00 ADMITTING DIAGNOSES: 1. Left knee meniscal tear. 2. Chondromalacia of right knee. HISTORY OF PRESENT ILLNESS: Mr. Mckee is a 48-year-old male who has been having progressive pain, catching, swelling, and locking involving his left knee for the past several months. Pain is worse with activity. The pain is not improved despite nonoperative intervention. In addition, he is having chronic pain in the right knee due to significant chondromalacia of the patella. Due to his progressive mechanical symptoms and lack of response to nonoperative treatment, he is admitted for diagnostic arthroscopy, meniscectomy, potential chondroplasty of the left knee with a concomitant corticosteroid injection involving the right knee. PAST MEDICAL HISTORY: Gout. PAST SURGICAL HISTORY: Appendectomy. FAMILY HISTORY: Unremarkable. SOCIAL HISTORY: He does not smoke nor does he drink. MEDICATIONS: Adderall and Naprosyn. REVIEW OF SYSTEMS: Negative. PHYSICAL EXAMINATION: VITAL SIGNS: He is 6 feet 1 inch tall, 144.7 kg. ORTHOPEDIC EVALUATION: Equal leg lengths. Full painless motion of both hips. Examination of the left knee reveals neutral alignment. He has a 1+ effusion. He has 0 to 125 degrees of motion. He has isolated pain along the lateral joint line with a positive Osman sign. There is no instability. His distal neurovascular status is intact. DIAGNOSTIC DATA: Radiographic evaluation including an MRI scan revealed a prominent tear of the lateral meniscus. Examination of the right knee reveals neutral alignment, significant patellofemoral crepitus, no instability, no joint line tenderness. PATIENT NAME: SAMSON MCCLAIN ASSESSMENT: Left knee pain secondary to ongoing meniscal tearing with right knee pain due to chondromalacia of the patella. SURGICAL PLAN: Will be to proceed with a diagnostic arthroscopy, meniscectomy, and potential chondroplasty of the left knee with an ultrasound-guided intra-articular injection of the right knee. I have gone over at length with Mr. Mckee the associated risks involved with this procedure. He understands these risks to include, but not limited to bleeding, infection, neurovascular damage, persistent pain, loss of motion, need for further operative intervention, deep vein thrombi leading to pulmonary emboli along with complications secondary to anesthesia. Furthermore, he understands that there are absolutely no guarantees or warranties that he will be pain free as a result of the procedure. He accepts these risks and gives his informed consent to proceed. Dictated By: Ishmael Mccarthy MD Date Dictated: 01/07/2024 07:31:36 Date Transcribed: 01/07/2024 07:58:46 CHAN/DEMETRI/FREYA Receipt ID: [id number] Authenticated by Ishmael Mccarthy MD On 01/08/2024 05:46:43 AM at 0546 PATIENT NAME: SAMSON MCCLAIN [facility] 2023-12-16 15:12:08 [facility] by [facility] for c/o left knee pain and swelling Hx gout, takes allopurinol Given 4mg zofran and 100mcg fentanyl by ems Chandrika Doll RN [facility]"
[2024-09-17 18:43] LABS: Specific Gravity 1.021 (1.005-1.030); Sqamous Epithelial <5 /HPF (None Seen); Urine Bacteria None Seen /HPF (<20); Urine Bilirubin NEGATIVE (Negative); Urine Blood Trace (Negative); Urine Clarity Clear (Clear); Urine Color Light-Yellow (Yellow); Urine Culture Reflex Order NOT NEEDED; Urine Glucose NEGATIVE (Negative); Urine Ketones NEGATIVE (Negative); Urine Micro Reflex YN NO BILL MICROSCOPIC; Urine Mucus Slight /HPF (None Seen); Urine Nitrite NEGATIVE (Negative); Urine Protein NEGATIVE (Negative); Urine RBC <5 /HPF (None Seen); Urine Urobilinogen Normal (Normal); Urine WBC <5 /HPF (<5)
[2024-09-17] MEDS ORDERED: KETOROLAC 30 MG/ML INJ ONE (18:47)
[2024-09-17 18:53] LABS: Absolute Basophils 0.2 K/uL (0-0.5); Absolute Eosinophils 0.4 K/uL (0-0.5); Absolute Lymphocytes (CBC) 3.6 K/uL (0.7-4.9); Absolute Monocytes 0.7 K/uL (0.1-1.3); Absolute Neutrophil 5.7 K/uL (1.8-8.0); Basophils % 1.8 % (0-1.3); Hematocrit 45.9 % (39.6-49.0); Hemoglobin 15.7 g/dL (13.6-17.9); Lymphocytes % 34.2 % (15.3-44.8); MCH 30.5 pg (27.0-35.0); MCHC 34.1 g/dL (32.0-36.0); MCV 89.5 fL (80-100); Monocytes % 6.8 % (3.3-12.3); Neutrophils % 53.2 % (41.7-73.7); Platelets 253 thou/uL (152-406); RBC Red Blood Cell Count 5.13 M/uL (4.33-5.43)
--- NOTE | 2024-09-17 18:55 | RAD REPORT ---
EXAMINATION: CT ABDOMEN AND PELVIS WITH AND WITHOUT CONTRAST CLINICAL INDICATION: Male, 49 years old.black stools;Abd pain TECHNIQUE: CT abdomen and pelvis was performed before and after the administration of IV contrast as per department protocol. Axial, sagittal and coronal reconstructions were obtained. One or more of the following dose reduction techniques were used: Automated exposure control, adjustment of the mA a nd/or kV according to patient size, and/or iterative reconstruction. Unless otherwise specified, incidental findings do not require dedicated imaging follow-up. [id number]. COMPARISON: No prior exam. FINDINGS: LOWER CHEST: No acute process identified.No significant pericardial effusion. UPPER GI: No significant abnormality. LIVER: Hepatic steatosis, but otherwise unremarkable. GALLBLADDER/BILE DUCTS: No biliary ductal dilatation.? PANCREAS: No mass, ductal dilation, or cristina-pancreatic fluid. SPLEEN: Unremarkable. ADRENALS: No adrenal masses. KIDNEYS AND URETERS: No hydronephrosis.Limited evaluation for renal lesions in the absence of IV cont rast. ABDOMINAL AORTA AND OTHER VESSELS: Normal caliber aorta and IVC. PERITONEUM: No abnormal free fluid. No free air. LYMPH NODES: No pathologic lymphadenopathy. ABDOMINAL WALL: Unremarkable SMALL BOWEL/COLON: Small bowel has normal course and caliber. No colonic wall thickening or pericolon ic inflammatory changes.Appendix absent. URINARY BLADDER: Underdistended but grossly unremarkable. REPRODUCTIVE ORGANS: No pathologic process. MUSCULOSKELETAL: No acute or suspicious osseous abnormality. ADDITIONAL FINDINGS: None. IMPRESSION: No acute findings within the abdomen or pelvis.
[2024-09-17 19:00] LABS: Albumin 3.7 g/dL (3.4-5.0); Albumin/Globulin Ratio 0.9 (1.1-1.8); Anion Gap 6.7 mEq/L (5.0-15.0); Bilirubin Total 0.3 mg/dL (0.2-1.0); Magnesium 2.2 mg/dL (1.6-2.4); Potassium 3.7 mEq/L (3.5-5.1); Protein, Total 7.7 g/dL (6.4-8.2)
[2024-09-17 19:21] LABS: PT Prothrombin Time 11.4 SECONDS (10.0-13.0)
[2024-09-17 19:22] LABS: PTT, Activated Partial Thromb 36.8 SECONDS (24.3-36.9)
--- NOTE | 2024-09-17 20:59 | ER ---
Nurse's Notes [facility] Name: Inocencio Ardon Age: 49 yrs Sex: Male : 1975 Arrival Date: 09/17/2024 Time: 17:24 Bed 15 Private MD: Irvin Baig Diagnosis: Lower abdominal pain, unspecified;Diarrhea, unspecified Presentation: 09/17 17:38 Chief complaint: Patient states: Lower abdominal pain that radiates to back onset 4 cm10 days ago. Pt reports diarrhea and black tarry stools today. Coronavirus screen: Client denies travel out of the [place] in the last 14 days. Ebola Screen: No symptoms or risks identified at this time. Initial Sepsis Screen: Does the patient meet any 2 criteria? No. Patient's initial sepsis screen is negative. Does the patient have a suspected source of infection? No. Patient's initial sepsis screen is negative. Risk Assessment: Do you want to hurt yourself or someone else? Patient reports no desire to harm self or others. Onset of symptoms was September 13, 2024. 17:38 Method Of Arrival: Ambulatory cm10 17:38 Acuity: ELIZABETH 3 cm10 Triage Assessment: 17:40 General: Appears in no apparent distress. comfortable, Behavior is calm, cooperative. cm10 Neuro: No deficits noted. Level of Consciousness is awake, alert, obeys commands, Oriented to person, place, time, situation, Appropriate for age. Respiratory: No deficits noted. Airway is patent Respiratory effort is even, unlabored, Respiratory pattern is regular, symmetrical. GI: Reports lower abdominal pain, bloating, cramping, indigestion. Historical: - Allergies: 17:39 No Known Allergies; cm10 - Home Meds: 17:39 None [Active]; cm10 - PMHx: 17:39 None; cm10 - PSHx: 17:39 Appendectomy; Left Knee; cm10 - Immunization history:: Adult Immunizations up to date. - Infectious Disease History:: Denies. - Social history:: Smoking status: Patient denies any tobacco usage or history of. Screenin:35 [facility] ED Fall Risk Assessment (Adult) History of falling in the last 3 months, iw including since admission No falls in past 3 months (0 pts) Confusion or Disorientation No (0 pts) Intoxicated or Sedated No (0 pts) Impaired Gait No (0 pts) Mobility Assist Device Used No (0 pt) Altered Elimination No (0 pt) Score/Fall Risk Level 0 - 2 = Low Risk Oriented to surroundings, Maintained a safe environment. Abuse screen: Denies threats or abuse. Nutritional screening: No deficits noted. Tuberculosis screening: No symptoms or risk factors identified. Assessment: 18:34 General: Appears in no apparent distress. Behavior is calm, cooperative. Pain: iw Complains of pain in right lower quadrant and left lower quadrant Pain radiates to left low back and right low back Pain currently is 4 out of 10 on a pain scale. Neuro: Level of Consciousness is awake, alert, obeys commands, Oriented to person, place, time, situation, Moves all extremities. Full function. Cardiovascular: Patient's skin is warm and dry. Respiratory: Respiratory effort is even, unlabored, Respiratory pattern is regular, symmetrical. GI: Abdomen is non-distended, Abd is soft X 4 quads Reports lower abdominal pain, rectal bleeding, bloody stool. Derm: Skin is intact, is healthy with good turgor. Musculoskeletal: Range of motion: intact in all extremities. Vital Signs: 17:38 BP 147 / 99; Pulse 82; Resp 15; Temp 98.3(O); Pulse Ox 98% on R/A; Weight 146.06 kg; cm10 Height 6 ft. 1 in. ; Pain 4/10; 19:30 BP 125 / 81; Pulse 70; Resp 16; Pulse Ox 97% on R/A; dd2 21:30 BP 122 / 82; Pulse 69; Resp 16; Temp 98.3; Pulse Ox 96% on R/A; dd2 17:38 Body Mass Index 42.48 (146.06 kg, 185.42 cm) cm10 17:38 Pain Scale: Adult cm10 ED Course: 17:29 Patient arrived in ED. gm2 17:29 Irvin Baig DO is Private Physician. gm2 17:31 Jhon Cleaning PA is PHCP. cp 17:31 Kirstie Baig MD is Attending Physician. cp 17:39 Triage completed. cm10 17:40 Arm band placed on right wrist. Patient placed in an exam room, on a stretcher. cm10 18:34 Initial lab(s) drawn, by me, sent to lab. Inserted saline lock: 20 gauge in right iw antecubital area, using aseptic technique. Blood collected. Flushed with 10 mL NS. 18:39 CT Abd/Pelvis- W/WO Contrast In Process Unspecified. EDMS 18:40 Selma Garcia, RN is Primary Nurse. iw 20:57 Moo Dowell MD is Referral Physician. cp 21:30 No provider procedures requiring assistance completed. IV discontinued, intact, dd2 bleeding controlled, No redness/swelling at site. Pressure dressing applied. 21:31 Patient has correct armband on for positive identification. Bed in low position. Call dd2 light in reach. Side rails up X 1. Provided Education on: D/C EDUCATION. Administered Medications: 19:07 Drug: Ketorolac IVP 15 mg IVP once Route: IVP; Site: right antecubital; iw 19:22 Follow up: Response: No adverse reaction dd2 Medication: 18:35 VIS not applicable for this client. iw Outcome: 20:59 Discharge ordered by MD. cp 21:30 Discharged to home ambulatory, dd2 21:30 Condition: stable 21:30 Discharge instructions given to patient, Instructed on discharge instructions, follow up and referral plans. medication usage, Demonstrated understanding of instructions, follow-up care, medications, Prescriptions given X 1, 21:31 Patient left the ED. dd2 Signatures: Dispatcher [employer] EDMS Selma Garcia, CANDI CHRISTOPHER iw Jhon Cleaning PA PA Domenica Martinez RN RN cm10 Carie Hector 2 EDUARDO MACIAS RN RN dd2
--- NOTE | 2024-09-17 20:59 | EDPHYS ---
Physician Documentation [facility] Name: Inocencio Ardon Age: 49 yrs Sex: Male : 1975 Arrival Date: 09/17/2024 Time: 17:24 Bed 15 Private MD: Jovanni [facility] ED Physician Kirstie Baig HPI: 09/17 18:10 This 49 yrs old Male presents to ER via Ambulatory with complaints of cp Abdominal Pain, Bloody Stools. 18:10 The patient presents with abdominal pain in the lower abdomen. cp 18:10 Onset: The symptoms/episode began/occurred 4 day(s) ago. cp 18:10 The symptoms radiate to lower back. The symptoms are described as waxing/waning. cp Patient reports noticing dark colored, almost black stool with bowel movement earlier today. Reports second episode of dark colored, diarrheal bowel movement today. Denies any gross blood. Denies use of alcohol and/or drugs. Historical: - Allergies: 17:39 No Known Allergies; cm10 - Home Meds: 17:39 None [Active]; cm10 - PMHx: 17:39 None; cm10 - PSHx: 17:39 Appendectomy; Left Knee; cm10 - Immunization history:: Adult Immunizations up to date. - Infectious Disease History:: Denies. - Social history:: Smoking status: Patient denies any tobacco usage or history of. ROS: 18:15 Constitutional: Negative for body aches, chills, fever, poor PO intake, cp 18:15 Eyes: Negative for injury, pain, redness, and discharge, cp 18:15 ENT: Negative for drainage from ear(s), ear pain, sore throat, difficulty swallowing, difficulty handling secretions, 18:15 Cardiovascular: Negative for chest pain, edema, palpitations, 18:15 Respiratory: Negative for cough, shortness of breath, wheezing, 18:15 Abdomen/GI: Positive for abdominal pain, diarrhea, of the right lower quadrant and left lower quadrant, dark colored/black stool, Negative for constipation, 18:15 Neuro: Negative for altered mental status, dizziness, headache, weakness, 18:15 All other systems are negative, Exam: 18:20 Constitutional: The patient appears in no acute distress, alert, awake, cp non-diaphoretic, non-toxic, well developed, well nourished, obese, 18:20 Head/Face: Normocephalic, atraumatic. cp 18:20 Eyes: Periorbital structures: appear normal, Conjunctiva: normal, no exudate, no injection, Sclera: no appreciated abnormality, Lids and lashes: appear normal, bilaterally, 18:20 ENT: External ear(s): are unremarkable, Nose: is normal, Mouth: Lips: moist, Oral mucosa: moist, Posterior pharynx: Airway: no evidence of obstruction, patent, 18:20 Chest/axilla: Inspection: normal, 18:20 Cardiovascular: Rate: normal, Rhythm: regular, 18:20 Respiratory: the patient does not display signs of respiratory distress, Respirations: normal, no use of accessory muscles, no retractions, labored breathing, is not present, Breath sounds: are clear throughout, no decreased breath sounds, no stridor, no wheezing, 18:20 Abdomen/GI: Inspection: obese Bowel sounds: active, all quadrants, Palpation: soft, in all quadrants, mild abdominal tenderness, in the right lower quadrant and left lower quadrant, rebound tenderness, is not appreciated, involuntary guarding, is not appreciated, 18:20 Back: CVA tenderness, is absent, 18:20 Neuro: Orientation: to person, place \T\ time. Mentation: is normal, Motor: moves all fours, strength is normal, Vital Signs: 17:38 BP 147 / 99; Pulse 82; Resp 15; Temp 98.3(O); Pulse Ox 98% on R/A; Weight 146.06 kg; cm10 Height 6 ft. 1 in. ; Pain 4/10; 19:30 BP 125 / 81; Pulse 70; Resp 16; Pulse Ox 97% on R/A; dd2 21:30 BP 122 / 82; Pulse 69; Resp 16; Temp 98.3; Pulse Ox 96% on R/A; dd2 17:38 Body Mass Index 42.48 (146.06 kg, 185.42 cm) cm10 17:38 Pain Scale: Adult cm10 MDM: 17:42 Medical Screening Exam initiated cp 19:00 Differential diagnosis: diverticulitis, gastritis, pancreatitis, Peptic Ulcer Disease, cp Perf. Duodenal Ulcer, Perf. Gastric Ulcer. 20:58 Data reviewed: vital signs, nurses notes, lab test result(s), radiologic studies, CT cp scan, and as a result, I will discharge patient. 20:58 I considered the following discharge prescriptions or medication management in the emergency department Medications were administered in the Emergency Department. See MAR. 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 Response to treatment: the patient's symptoms have mildly improved after treatment, and as a result, I will discharge patient. Special discussion: Based on the patient's Hx, exam, and Dx evaluation, there is no indication for emergent surgery or inpatient Tx. It is understood by the patient/guardian that if the Sx's persist or worsen they need to return immediately for re-evaluation. 09/17 18:05 Order name: CBC with Diff; Complete Time: 18:57 cp 09/17 18:57 Interpretation: Normal except: BASO% 1.8. cp 09/17 18:05 Order name: CMP; Complete Time: 20:26 cp 09/17 20:26 Interpretation: GLOB 4.0; A/G 0.9; Reviewed. cp 09/17 18:05 Order name: Lipase; Complete Time: 20:26 cp 09/17 18:05 Order name: PT-INR; Complete Time: 20:26 cp 09/17 18:05 Order name: Ptt, Activated; Complete Time: 20:26 cp 09/17 18:05 Order name: Magnesium; Complete Time: 20:26 cp 09/17 18:05 Order name: Urinalysis W/Microscopic; Complete Time: 20:26 cp 09/17 18:05 Order name: CT Abd/Pelvis- W/WO Contrast; Complete Time: 18:57 cp 09/17 18:58 Interpretation: Reviewed. cp 09/17 18:05 Order name: IV Saline Lock; Complete Time: 18:34 cp 09/17 18:05 Order name: Labs collected and sent; Complete Time: 18:34 cp Administered Medications: 19:07 Drug: Ketorolac IVP 15 mg IVP once Route: IVP; Site: right antecubital; iw 19:22 Follow up: Response: No adverse reaction dd2 Disposition Summary: 09/17/24 20:59 Discharge Ordered Notes: Location: Home cp Problem: new cp Symptoms: have improved cp Condition: Stable cp Diagnosis - Lower abdominal pain, unspecified cp - Diarrhea, unspecified cp Followup: cp - With: Moo Dowell MD - When: 2 - 3 days - Reason: Recheck today's complaints Discharge Instructions: - Discharge Summary Sheet cp - Abdominal Pain, Adult cp - Food Choices to Help Relieve Diarrhea, Adult cp - Diarrhea, Adult cp Forms: - Medication Reconciliation Form cp - Antibiotic Education cp - Prescription Opioid Use cp - Patient Portal Instructions cp - Leadership Thank You Letter cp Prescriptions: - Protonix 40 mg Oral Tablet - take 1 tablet ORAL route once daily; 30 tablet; Refills: 0, Product Selection cp Permitted Signatures: Dispatcher [employer] Selma Dow RN CANDI iw Jhon Cleaning PA PA cp Domenica Cody RN RN cm10 EDUARDO MACIAS RN dd2 Corrections: (The following items were deleted from the chart) 18:06 18:06 CBC+H.LAB.BRZ ordered. EDMS EDMS 18:06 18:06 COMPREHENSIVE METABOLIC PANEL+C.LAB.BRZ ordered. EDMS EDMS 18:06 18:06 LIPASE+C.LAB.BRZ ordered. EDMS EDMS 18:06 18:06 PROTIME (+INR)+COAG.LAB.BRZ ordered. EDMS EDMS 18:06 18:06 PTT, ACTIVATED+COAG.LAB.BRZ ordered. EDMS EDMS 18:06 18:06 MAGNESIUM+C.LAB.BRZ ordered. EDMS EDMS 18:06 18:06 Fecal Leukocyte Stain+BA.LAB.BRZ ordered. EDMS EDMS 18:06 18:06 Ova and Parasites+MR.LAB.BRZ ordered. EDMS EDMS 18:06 18:06 Rotavirus Antigen+BA.LAB.BRZ ordered. EDMS EDMS 18:06 18:06 Stool Culture+BA.LAB.BRZ ordered. EDMS EDMS 18:06 18:06 C.difficile GDH Ag \T\ Toxin AB+LAB.BRZ ordered. EDMS EDMS 18:06 18:06 Urinalysis W/Microscopic+U.LAB.BRZ ordered. EDMS EDMS 18:39 18:06 Urinalysis+U.LAB.BRZ ordered. EDMS EDMS 20:26 20:26 Reviewed. cp cp
[2024-09-17 21:39] VITALS: TEMP 98.3
[2024-09-17 21:42] VITALS: BP 122/82; O2SAT 96
== END 2024-09-17 21:31 | disposition home or self-care (01) ==
LOC: ER 17:24
DX: R10.32 Left lower quadrant pain (principal); R19.7 Diarrhea, unspecified
CPT/HCPCS: 85025; 81001; 36415; 83735; 85610; 85730; 83690; 80053; 74178; 96374; 99284; Q9967; 82565